=== PATIENT | male | born 1945 | race Caucasian/White ===

== ENCOUNTER → 2016-12-18 | Outpatient (CLI) | payer MEDICARE, OTHER ==
[2016-12-18 10:56] LABS: ALBUMIN 4.2 GM/DL (3.2-5.2); ALBUMIN/GLOBULIN RATIO 1.31 (1.00-1.93); ALKALINE PHOSPHATASE 83 U/L (45-117); ALT/SGPT 39 U/L (12-78); ANION GAP 10 MEQ/L (8-16); AST/SGOT 31 U/L (15-37); BILIRUBIN,TOTAL 0.6 MG/DL (0.2-1.0); BLOOD UREA NITROGEN 21 MG/DL (7-18); CALCIUM LEVEL 8.9 MG/DL (8.8-10.2); CARBON DIOXIDE LEVEL 29 MEQ/L (21-32); CHLORIDE LEVEL 102 MEQ/L (98-107); CHOLESTEROL LEVEL 220 MG/DL (<200); CREATININE FOR GFR 1.19 MG/DL (0.70-1.30); GLOMERULAR FILTRATION RATE > 60.0 (>42); GLUCOSE, FASTING 100 MG/DL (83-110); POTASSIUM SERUM 4.5 MEQ/L (3.5-5.1); SODIUM LEVEL 141 MEQ/L (136-145); TOTAL PROTEIN 7.4 GM/DL (6.4-8.2); TRIGLYCERIDES LEVEL 227 MG/DL (<150)
[2016-12-20 00:09] LABS: PSA % FREE 19.7 % (.); PSA FREE 1.14 ng/mL; PSA TOTAL 5.8 ng/mL (0.0-4.0)
== END ==
LOC: M LAB 09:47
PROVIDERS: ATTEND Emergency Medicine
DX: N40.1 Benign prostatic hyperplasia with lower urinary tract symptoms (principal); E78.2 Mixed hyperlipidemia

== ENCOUNTER 2017-08-28 08:56 | Emergency (ER) | payer MEDICARE, OTHER ==
[~2017-08-28] VITALS: Ht 188 cm; Wt 102.3 kg
[2017-08-28] MEDS ORDERED: PANT40TA2 (09:14)
[2017-08-28] MEDS ORDERED: NS 500 ML IV ONE (09:45)
[2017-08-28 11:45] LABS: BASO % 0.5 % (0.0-1.0); EOS # 0.2 10^3/uL (0.0-0.50); EOS % 2.7 % (0.0-3.0); IMMATURE GRANULOCYTE % 0.4 % (0-0); LYMPH # 1.2 10^3/uL (1.5-4.5); LYMPH % 20.9 % (24.0-44.0); MEAN CORPUSCULAR HEMOGLOBIN 29.8 pg (27.0-33.0); MEAN CORPUSCULAR HGB CONC 33.6 g/dl (32.0-36.5); MEAN CORPUSCULAR VOLUME 88.8 fl (80.0-96.0); MONO # 0.4 10^3/uL (0.0-0.8); MONO % 7.6 % (0.0-5.0); NEUTROPHILS # 3.8 10^3/uL (1.8-7.7); NEUTROPHILS % 67.9 % (36.0-66.0); PLATELET COUNT, AUTOMATED 291 10^3/uL (150-450); RED CELL DISTRIBUTION WIDTH 13.2 % (11.5-14.5); WHITE BLOOD COUNT 5.6 10^3/uL (4.0-10.0)
[2017-08-28 11:57] LABS: ALBUMIN 3.8 GM/DL (3.2-5.2); ALBUMIN/GLOBULIN RATIO 1.06 (1.00-1.93); ALKALINE PHOSPHATASE 90 U/L (45-117); ALT/SGPT 45 U/L (12-78); ANION GAP 6 MEQ/L (8-16); AST/SGOT 36 U/L (7-37); BILIRUBIN,DIRECT 0.1 MG/DL (0.0-0.2); BILIRUBIN,TOTAL 0.6 MG/DL (0.2-1.0); BLOOD UREA NITROGEN 20 MG/DL (7-18); CALCIUM LEVEL 8.9 MG/DL (8.8-10.2); CARBON DIOXIDE LEVEL 29 MEQ/L (21-32); CHLORIDE LEVEL 105 MEQ/L (98-107); GLOMERULAR FILTRATION RATE > 60.0 (>42); GLUCOSE, FASTING 97 MG/DL (83-110); POTASSIUM SERUM 4.2 MEQ/L (3.5-5.1); SODIUM LEVEL 140 MEQ/L (136-145); TOTAL PROTEIN 7.4 GM/DL (6.4-8.2)
[2017-08-28 12:54] LABS: MAGNESIUM LEVEL 2.2 MG/DL (1.8-2.4)
[2017-08-28 13:49] LABS: FREE T4 1.11 NG/DL (0.76-1.46)
--- NOTE | 2017-08-28 13:55 | ECGEPIP ---
Stationary ECG Study [facility] - ED Test Date: 2017-08-28 Pat Name: MAC COYLE Department: Room: - Gender: M Optical Laboratory Technician: kristine : 1945 Requested By: Enriqueta Dunn Order Number: [id number] Reading MD: Joe Irizarry Measurements Intervals [place] Rate: 68 P: 46 TN: 213 QRS: 57 QRSD: 94 T: 9 QT: 379 QTc: 406 Interpretive Statements SINUS RHYTHM WITH FIRST DEGREE AV BLOCK NSTTW ABNORMALITIES SIMILAR TO 11/04/13 Electronically Signed On 08-28-2017 13:55:48 EST by Joe Irizarry
[2017-08-28 15:01] VITALS: BP 161/77
== END 2017-08-28 15:15 | disposition home or self-care (01) ==
LOC: M ED 08:56
DX: I49.8 Other specified cardiac arrhythmias (principal); E02 Subclinical iodine-deficiency hypothyroidism; R94.31 Abnormal electrocardiogram [ECG] [EKG]; I44.0 Atrioventricular block, first degree; I25.10 Atherosclerotic heart disease of native coronary artery without angina pectoris; K22.70 Barrett's esophagus without dysplasia; Z79.899 Other long term (current) drug therapy

== ENCOUNTER → 2017-12-01 | Outpatient (REF) | payer MEDICARE, OTHER ==
[2017-12-01 11:15] LABS: ALBUMIN 4.2 GM/DL (3.2-5.2); ALBUMIN/GLOBULIN RATIO 1.31 (1.00-1.93); ALKALINE PHOSPHATASE 78 U/L (45-117); ALT/SGPT 53 U/L (12-78); ANION GAP 6 MEQ/L (8-16); AST/SGOT 37 U/L (7-37); BILIRUBIN,TOTAL 0.6 MG/DL (0.2-1.0); BLOOD UREA NITROGEN 21 MG/DL (7-18); CALCIUM LEVEL 8.8 MG/DL (8.8-10.2); CARBON DIOXIDE LEVEL 31 MEQ/L (21-32); CHLORIDE LEVEL 105 MEQ/L (98-107); CHOLESTEROL LEVEL 145 MG/DL (<200); CHOLESTEROL RISK RATIO 3.295 (<5); CREATININE FOR GFR 1.07 MG/DL (0.70-1.30); FREE T4 0.96 NG/DL (0.76-1.46); GLOMERULAR FILTRATION RATE > 60.0 (>42); GLUCOSE, FASTING 88 MG/DL (70-100); HDL CHOLESTEROL 44 MG/DL (>40); LDL CHOLESTEROL 64.2 MG/DL (<100); MAGNESIUM LEVEL 2.3 MG/DL (1.8-2.4); NON-HDL-C 101 MG/DL; POTASSIUM SERUM 4.6 MEQ/L (3.5-5.1); SODIUM LEVEL 142 MEQ/L (136-145); TOTAL PROTEIN 7.4 GM/DL (6.4-8.2); TRIGLYCERIDES LEVEL 184 MG/DL (<150)
[2017-12-03 00:07] LABS: PSA FREE 1.22 ng/mL; PSA TOTAL 6.1 ng/mL (0.0-4.0)
== END ==
LOC: M LAB REF 10:35
DX: E03.9 Hypothyroidism, unspecified (principal)
CPT/HCPCS: 83735

== ENCOUNTER → 2018-06-23 | Outpatient (REF) | payer MEDICARE, OTHER ==
[2018-06-23 14:07] LABS: BASO % 0.7 % (0.0-1.0); EOS # 0.2 10^3/uL (0.0-0.50); EOS % 3.3 % (0.0-3.0); HEMOGLOBIN 15.3 g/dl (13.5-17.5); IMMATURE GRANULOCYTE % 0.3 % (0-3.0); LYMPH # 1.3 10^3/uL (1.5-4.5); LYMPH % 21.8 % (24.0-44.0); MEAN CORPUSCULAR HEMOGLOBIN 29.9 pg (27.0-33.0); MEAN CORPUSCULAR VOLUME 87.9 fl (80.0-96.0); MONO # 0.5 10^3/uL (0.0-0.8); MONO % 8.8 % (0.0-5.0); NEUTROPHILS # 3.9 10^3/uL (1.8-7.7); NEUTROPHILS % 65.1 % (36.0-66.0); PLATELET COUNT, AUTOMATED 283 10^3/uL (150-450); RED BLOOD COUNT 5.12 10^6/uL (4.30-6.10); RED CELL DISTRIBUTION WIDTH 13.2 % (11.5-14.5); WHITE BLOOD COUNT 6.1 10^3/uL (4.0-10.0)
[2018-06-23 14:12] LABS: APPEARANCE, URINE CLEAR (CLEAR); BACTERIA, URINE AUTO NEGATIVE (NEGATIVE); BILIRUBIN, URINE AUTO NEGATIVE (NEGATIVE); BLOOD, URINE BLOOD NEGATIVE (NEGATIVE); COLOR, URINE YELLOW (YELLOW); GLUCOSE, URINE (UA) AUTO NEGATIVE (NEGATIVE); KETONE, URINE AUTO NEGATIVE (NEGATIVE); LEUKOCYTE ESTERASE, URINE AUTO NEGATIVE (NEGATIVE); MUCUS, URINE SMALL (NEGATIVE); NITRITE, URINE AUTO NEGATIVE (NEGATIVE); PROTEIN, URINE AUTO NEGATIVE (NEGATIVE); RBC, URINE AUTO 2 /HPF (0-3); SPECIFIC GRAVITY URINE AUTO 1.021 (1.002-1.035); SQUAMOUS EPITHELIAL CELL UR AU 0 /HPF (0-6); UROBILINOGEN, URINE AUTO 0.2 mg/dL (0.0-2.0); WBC, URINE AUTO 0 /HPF (0-3)
[2018-06-23 15:20] LABS: ANION GAP 4 MEQ/L (8-16); BLOOD UREA NITROGEN 23 MG/DL (7-18); CALCIUM LEVEL 9.1 MG/DL (8.8-10.2); CARBON DIOXIDE LEVEL 31 MEQ/L (21-32); CHLORIDE LEVEL 103 MEQ/L (98-107); CREATININE FOR GFR 1.11 MG/DL (0.70-1.30); GLOMERULAR FILTRATION RATE > 60.0 (>42); GLUCOSE, FASTING 96 MG/DL (70-100); POTASSIUM SERUM 4.6 MEQ/L (3.5-5.1); SODIUM LEVEL 138 MEQ/L (136-145)
[2018-06-23 15:20] LABS: HEPATITIS C VIRUS ABY INDEX 0.2 INDEX (<0.8)
== END ==
LOC: M LABDRAWP 13:18
DX: D41.4 Neoplasm of uncertain behavior of bladder (principal)
CPT/HCPCS: 86803

== ENCOUNTER → 2018-08-04 | Outpatient (REF) | payer MEDICARE, OTHER | LOC: M LAB REF 16:00 | DX: L08.9 Local infection of the skin and subcutaneous tissue, unspecified (principal) | CPT/HCPCS: 87186 ==

== ENCOUNTER → 2018-09-16 | Outpatient (REF) | payer MEDICARE, OTHER ==
[2018-09-17 14:16] LABS: PSA % FREE 18.7 % (.); PSA FREE 1.14 ng/mL; PSA TOTAL 6.1 ng/mL (0.0-4.0)
== END ==
LOC: M LABDRAW1 09:08
DX: D40.0 Neoplasm of uncertain behavior of prostate (principal); Z12.5 Encounter for screening for malignant neoplasm of prostate
CPT/HCPCS: 84154

== ENCOUNTER → 2018-10-23 | Outpatient (REF) | payer MEDICARE, OTHER ==
[~2018-10-23] MED LIST: PANT40TA3
== END ==
LOC: M LABDRAW1 11:53
PROVIDERS: ATTEND Physician Assistant Medical
DX: R97.20 Elevated prostate specific antigen [PSA] (principal)
CPT/HCPCS: 36415; G0103

== ENCOUNTER → 2018-12-18 | Outpatient (CLI) | payer MEDICARE, OTHER ==
[2018-12-18 07:41] LABS: HEMATOCRIT 48.3 % (42.0-52.0); HEMOGLOBIN 16.1 g/dl (13.5-17.5); MEAN CORPUSCULAR HEMOGLOBIN 29.8 pg (27.0-33.0); MEAN CORPUSCULAR HGB CONC 33.3 g/dl (32.0-36.5); MEAN CORPUSCULAR VOLUME 89.3 fl (80.0-96.0); PLATELET COUNT, AUTOMATED 258 10^3/uL (150-450); RED BLOOD COUNT 5.41 10^6/uL (4.30-6.10); WHITE BLOOD COUNT 7.5 10^3/uL (4.0-10.0)
[2018-12-18 08:15] LABS: ALBUMIN 4.1 GM/DL (3.2-5.2); ALT/SGPT 36 U/L (12-78); BILIRUBIN,TOTAL 0.7 MG/DL (0.2-1.0); BLOOD UREA NITROGEN 24 MG/DL (7-18); CALCIUM LEVEL 8.6 MG/DL (8.8-10.2); CARBON DIOXIDE LEVEL 26 MEQ/L (21-32); CHLORIDE LEVEL 106 MEQ/L (98-107); CHOLESTEROL LEVEL 134 MG/DL (<200); CHOLESTEROL RISK RATIO 3.268 (<5); GLOMERULAR FILTRATION RATE > 60.0 (>42); GLUCOSE, FASTING 83 MG/DL (70-100); HDL CHOLESTEROL 41 MG/DL (>40); LDL CHOLESTEROL 69 MG/DL (<100); NON-HDL-C 93 MG/DL; POTASSIUM SERUM 4.4 MEQ/L (3.5-5.1); PROSTATIC SPECIFIC AG MONITOR 6.35 NG/ML (< 4.00); SODIUM LEVEL 139 MEQ/L (136-145); TOTAL PROTEIN 7.4 GM/DL (6.4-8.2); TRIGLYCERIDES LEVEL 120 MG/DL (<150)
--- NOTE | 2018-12-18 08:42 | REP ---
Chest x-ray: Two views. History: Hypothyroidism. Comparison chest x-ray: June 30, 2013. Findings: There are scattered granulomatous calcifications in the lung parenchyma bilaterally unchanged. Calcific mediastinal and left hilar lymph node residuals are suspected also unchanged. No adenopathy is seen. Heart is not enlarged and the lung coyne are otherwise clear. Pleural angles are sharp. The aorta is calcific and slightly tortuous. No bony abnormality is seen. Impression: No active disease. Electronically Signed by Oli Murphy MD 12/18/2018 08:34 A
[2018-12-18 10:07] LABS: TESTOSTERONE 142 NG/DL (241-827)
--- NOTE | 2018-12-19 17:27 | ECGEPIP ---
Stationary ECG Study [facility] Test Date: 2018-12-18 Pat Name: JOSE MARIA COYLE Department: Room: - Gender: M Noc Analyst: SIA : 1945 Requested By: José Luis Pugh Order Number: [id number] Reading MD: Jose Maria Voss Measurements Intervals [place] Rate: 65 P: 67 OR: 215 QRS: 78 QRSD: 102 T: 14 QT: 386 QTc: 403 Interpretive Statements SINUS RHYTHM WITH FIRST DEGREE AV BLOCK Nonspecific ST-T wave abnormalities Similar to tracing done 08-28-17 Electronically Signed On 12-19-2018 17:27:33 EST by Jose Maria Voss
== END ==
LOC: M LAB 06:50
PROVIDERS: ATTEND Family Medicine
DX: R53.83 Other fatigue (principal); E03.9 Hypothyroidism, unspecified; N40.0 Benign prostatic hyperplasia without lower urinary tract symptoms; I51.7 Cardiomegaly

== ENCOUNTER → 2019-01-13 | Outpatient (REF) | payer MEDICARE, OTHER | LOC: M LAB REF 12:18 | PROVIDERS: ATTEND Family Medicine | DX: Z11.6 Encounter for screening for other protozoal diseases and helminthiases (principal) ==

== ENCOUNTER → 2019-02-02 | Outpatient (REF) | payer MEDICARE, OTHER ==
[2019-02-02 19:05] LABS: MONO SCRN NEGATIVE (NEGATIVE)
[2019-02-05 00:08] LABS: Lyme Disease IgG/IgM Antibodie <0.91 ISR (0.00-0.90); Lyme Disease IgM Ab Quantitati <0.80 index (0.00-0.79)
== END ==
LOC: M LABDRAW1 16:28
PROVIDERS: ATTEND Family Medicine
DX: R53.83 Other fatigue (principal)

== ENCOUNTER → 2019-03-09 | Outpatient (CLI) | payer MEDICARE, OTHER ==
[~2019-03-09] MED LIST changes: +AMBI10TA PO; +ATOR1TAB19 PO; +ATOR1TAB21 PO; +CVS1CAP2 PO; +FINA5TAB2 PO; +FLOM0.4C39 PO; +LEVO50TA5 PO; -PANT40TA3; +PANT40TA3 PO; +PARO37.54 PO; +XANA0.5T PO
[2019-03-09 12:10] LABS: HEMATOCRIT 46.4 % (42.0-52.0); HEMOGLOBIN 15.4 g/dl (13.5-17.5); MEAN CORPUSCULAR HEMOGLOBIN 29.8 pg (27.0-33.0); MEAN CORPUSCULAR HGB CONC 33.2 g/dl (32.0-36.5); MEAN CORPUSCULAR VOLUME 89.9 fl (80.0-96.0); PLATELET COUNT, AUTOMATED 279 10^3/uL (150-450); RED BLOOD COUNT 5.16 10^6/uL (4.30-6.10); WHITE BLOOD COUNT 8.1 10^3/uL (4.0-10.0)
[2019-03-09 12:21] LABS: INR 0.99; PROTHROMBIN TIME 13.2 SECONDS (12.1-14.4)
[2019-03-09 12:22] LABS: PARTIAL THROMBOPLASTIN TIME 38.9 SECONDS (25.4-37.6)
[2019-03-09 13:11] LABS: BLOOD UREA NITROGEN 18 MG/DL (7-18); CARBON DIOXIDE LEVEL 27 MEQ/L (21-32); CHLORIDE LEVEL 103 MEQ/L (98-107); CREATININE FOR GFR 0.99 MG/DL (0.70-1.30); GLOMERULAR FILTRATION RATE > 60.0 (>42); GLUCOSE, FASTING 88 MG/DL (70-100); POTASSIUM SERUM 4.4 MEQ/L (3.5-5.1); SODIUM LEVEL 139 MEQ/L (136-145)
--- NOTE | 2019-03-09 14:12 | REP ---
Clinical: Preoperative assessment. Prostate cancer . Comparison: 12/18/2018 . Technique: PA and lateral. Findings: The mediastinum and cardiac silhouette are normal. The lung coyne are clear and without acute consolidation, effusion, or pneumothorax. The skeletal structures are intact and normal. Impression: 1. No acute cardiopulmonary process. Electronically Signed by Nadir Kelly MD 03/09/2019 02:03 P
--- NOTE | 2019-03-10 09:41 | ECGEPIP ---
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 Improved repolarization compared with 12/18/2018. Electronically Signed on 03-10-2019 9:40:28 EDT by Jose Maria Stevenson
== END ==
LOC: M LAB 11:27
PROVIDERS: ATTEND Urology
DX: Z01.818 Encounter for other preprocedural examination (principal); C61 Malignant neoplasm of prostate

== ENCOUNTER → 2019-03-12 | Outpatient (REF) | payer MEDICARE, OTHER | LOC: M SMT 13:27 | PROVIDERS: ATTEND Urology | DX: Z01.818 Encounter for other preprocedural examination (principal); C61 Malignant neoplasm of prostate; N39.0 Urinary tract infection, site not specified ==

== ENCOUNTER 2019-03-25 06:02 | Inpatient (IN) | payer MEDICARE, OTHER ==
[~2019-03-25] VITALS: Ht 188 cm; Wt 93.9 kg
[2019-03-25] VITALS (7 sets, daily range): BP systolic 114–129; BP diastolic 58–61
[~2019-03-25 06:02] MED LIST changes: +HEPARIN SOD (PORCINE) 5000 UNITS/ML VIAL SQ ONE; +LR 1,000 ML IV ONE
[2019-03-25] MEDS ORDERED: BUPIVACAINE HCL 0.25% 30 ML VIAL As Ordered ONE (06:56)
[2019-03-25] MEDS ORDERED: LIDOCAINE 1% SDV INJ 30 ML VIAL As Ordered ONE (06:56)
[2019-03-25] MEDS ORDERED: SCOPOLAMINE 1MG TRANSDERMAL PATCH As Ordered ONE (07:11)
[2019-03-25] MEDS ORDERED: MIDAZOLAM INJ 2 MG/2 ML VIAL (J2250) As Ordered ONE (07:15)
[2019-03-25] MEDS ORDERED: LIDOCAINE 2% INJ 100 MG/5 ML SDV (FOR ANES.) As Ordered ONE (07:15)
[2019-03-25] MEDS ORDERED: ROCURONIUM BROMIDE 50 MG/5 ML VIAL As Ordered ONE ×2 (07:15→08:29)
[2019-03-25] MEDS ORDERED: ONDANSETRON 4MG/2ML VIAL (J2405) As Ordered ONE (07:15)
[2019-03-25] MEDS ORDERED: PROPOFOL 200 MG/20 ML VIAL As Ordered ONE (07:15)
[2019-03-25] MEDS ORDERED: fentaNYL 250 MCG/5 ML INJECTION (J3010) As Ordered ONE (07:15)
[2019-03-25] MEDS ORDERED: dexameTHASONE 4 MG/ML 1ML VIAL (J1100) As Ordered ONE (07:21)
[2019-03-25] MEDS ORDERED: SCOPOLAMINE 1MG TRANSDERMAL PATCH TOP ONE (07:30)
[2019-03-25] MEDS ORDERED: ONDANSETRON 4MG/2ML VIAL (J2405) IV PRN ×2 (07:45→13:30)
[2019-03-25] MEDS ORDERED: ACETAMINOPHEN TAB 650MG DOSE (2X325MG) PO PRN (07:45)
[2019-03-25] MEDS ORDERED: MORPHINE 4 MG/ML 1ML VIAL/SYRINGE (J2270) IV PRN (07:45)
[2019-03-25] MEDS ORDERED: SUCCINYLCHOLINE 100 MG/5 ML SYRINGE (J0330) As Ordered ONE (07:47)
[2019-03-25] MEDS ORDERED: HYDROmorphone HCL 2 MG/ML 1ML VIAL (J1170) As Ordered ONE (08:42)
[2019-03-25] MEDS ORDERED: PARoxetine 12.5 MG **CR** TAB PO SCH (09:00)
[2019-03-25] MEDS ORDERED: ACETAMINOPHEN 1000MG 100ML IV BTL (OFIRMEV) (J0131 PER 10MG) As Ordered ONE (09:56)
[2019-03-25] MEDS ORDERED: ePHEDrine SULFATE 25 MG/5 ML(5MG/ML) SYRINGE As Ordered ONE (10:39)
[2019-03-25] MEDS ORDERED: SUGAMMADEX SODIUM 500 MG/5 ML VIAL (BRIDION) As Ordered ONE (11:47)
--- NOTE | 2019-03-25 12:46 | ROOPDOC ---
[facility] Report Of Operation Report of Operation DATE OF PROCEDURE: 03/25/19 PREPROCEDURE DIAGNOSES: Prostate Cancer. POSTPROCEDURE DIAGNOSES: Prostate Cancer. PROCEDURE: Robotic-assisted Laparoscopic Radical Prostatectomy with Bilateral Pelvic Lymph Node Dissection. SURGEON: Mitchel Bess MD CUSTOMER CARE CONSULTANT: Paige Frank NP ANESTHESIA: General. OPERATIVE INDICATIONS: This is a 73 year old male with clinical T1c [place] 3+5 prostate cancer, here today for treatment. DESCRIPTION OF PROCEDURE: The patient was brought to the operating room and general anesthesia was induced. Prophylactic antibiotics were infused. He was then placed in the supine position and prepped and draped in the usual sterile fashion. At this point, a Belcher catheter was inserted into the bladder and the balloon was filled with 10 mL of sterile water. We then made a midline incision just above the umbilicus for an 8 mm port. A Veress needle was utilized to achieve pneumoperitoneum. Next, an 8 mm port was inserted into the incision and subsequently a camera was inserted. There were no injuries from the Veress needle or initial trocar placement. Then three robotic ports were placed in the usual configuration in line just below the level of the umbilicus. Once all the ports were placed, the robot was docked. Additional lysis of adhesions between the sigmoid colon and abdominal wall was then performed. The bladder was then released from the anterior abdominal wall using electrocautery. Once the bladder was dropped, the fat overlying the prostate was cleared using electrocautery. The superficial dorsal vein was controlled with electrocautery. The endopelvic fascia was opened on both sides and the dorsal venous complex was cleared. Next, a #0 Vicryl fi [id number] stitch was placed around the dorsal venous complex. Once that was done, the bladder was opened and dissected away from the prostate. Of note, this was challenging as the patient had a very large median lobe growing into the bladder. This was dissected away from the bladder. At this point, the prostate was lifted up. The vasa deferentia were identified in the midline. They were controlled with electrocautery and then transected. The seminal vesicles were also dissected off bilaterally. The rectum was safely mobilized away from the prostate. At this point I ligated and transected bilateral prostatic pedicles using the Harmonic scalpel. The pedicles were carried towards the apex. After taking care of the pedicles and mobilizing the rectum off the prostate below, the prostate was only connected by the urethra. At this point, the dorsal venous complex was transected with electrocautery. The urethra was then opened and the catheter was withdrawn and the posterior urethra was transected, thus freeing the prostate. At this point, we checked for hemostasis and it appeared very good. Next, we performed bilateral pelvic lymph node dissection. This was done in a standard fashion. The limits of dissection were the iliac vein proximally, the obturator nerve distally, the pelvic sidewall laterally, and the bladder medially. All lymphatic tissue within these limits was removed. I performed the same procedure on both the right and left sides. Hemostasis was then obtained with a combination of bipolar electrocautery and Weck clips. The lymphatic packets were then placed in separate Endo Catch bags for future retrieval. Once hemostasis was confirmed, I then moved on to perform the vesicourethral anastomosis. The vesicourethral anastomosis was performed in running fashion using a Quill stitch. Once this was done, the final #20-Tajik Belcher catheter was placed. The balloon was filled with 15 mL of sterile water. Upon completion of the vesicourethral anastomosis, it was tested by filling the bladder with sterile water. The anastomosis appeared to be watertight. At this point, the prostate and seminal vesicles were placed in an Endo Catch bag for future retrieval. A Duane-Luevano drain was brought in through the left robotic port skin site and the drain was positioned anterior to the bladder. The robot was then undocked. A Arnaud-Elsa fascial closure device was utilized to place a #0 Vicryl suture through the fascia of the 12 mm assistant inventory manager port. The drain was secured to the skin with #2-0 Ethilon suture. The prostate, as well as the lymphatic packets were then extracted from the camera port site after the skin was extend ed. The fascia in this incision was then closed with a running #0 Vicryl stitch. Next, all the remaining ports were removed and there did not appear to be any bleeding from any of the port sites. The previously placed #0 Vicryl free ties through the assistant inventory manager port were then tied down and all incisions were irrigated. Last, all of the incisions were closed with running subcuticular #4-0 Monocryl sutures. Local anesthesia was applied. Dermabond was then applied to the incisions. This marked the conclusion of the procedure. The patient was then awakened from anesthesia and transported to the recovery room in stable condition. ESTIMATED BLOOD LOSS: 150 mL. COMPLICATIONS: None. SPECIMENS: Prostate and seminal vesicles, right pelvic lymph nodes, left pelvic lymph nodes. PLAN: The patient will be admitted to the hospital postoperatively, and he will likely be discharged home within the next 1-2 days. MITCHEL BESS MD Mar 25, 2019 12:46
[2019-03-25] MEDS ORDERED: METOCLOPRAMIDE INJ 10MG/2ML VIAL (J2765) IV PRN (13:30)
[2019-03-25] MEDS ORDERED: HYDROMORPHONE HCL 0.5 MG/ 0.5 ML SYRINGE (J1170 PER 1) IV PRN (13:30)
[2019-03-25] MEDS ORDERED: LR 1,000 ML IV SCH (13:30)
[2019-03-25] MEDS ORDERED: PERCOCET 5MG/325MG TAB PO PRN (13:30)
[2019-03-25 13:38] LABS: HEMATOCRIT 44.4 % (42.0-52.0); HEMOGLOBIN 14.7 g/dl (13.5-17.5); MEAN CORPUSCULAR HEMOGLOBIN 29.8 pg (27.0-33.0); MEAN CORPUSCULAR HGB CONC 33.1 g/dl (32.0-36.5); MEAN CORPUSCULAR VOLUME 90.1 fl (80.0-96.0); PLATELET COUNT, AUTOMATED 333 10^3/uL (150-450); RED BLOOD COUNT 4.93 10^6/uL (4.30-6.10); WHITE BLOOD COUNT 17.5 10^3/uL (4.0-10.0)
[2019-03-25 13:49] LABS: CALCIUM LEVEL 8.6 MG/DL (8.8-10.2); CREATININE FOR GFR 1.64 MG/DL (0.70-1.30); GLOMERULAR FILTRATION RATE 44.2 (>42); POTASSIUM SERUM 4.1 MEQ/L (3.5-5.1)
[2019-03-25] MEDS: fentaNYL 100 MCG/2 ML INJECTION (J3010) IV PRN ×3 (14:11→14:14)
[2019-03-25] MEDS: NS 1,000 ML IV SCH ×2 (15:18→23:55)
[2019-03-25] MEDS: ceFAZolin SOD 1 GM in D5W MINI-BAG PLUS 50 ML IV SCH ×2 (15:18→23:01)
[2019-03-25] MEDS: DOCUSATE SODIUM 100 MG CAP PO SCH ×2 (15:19→20:03)
[2019-03-25] MEDS: PERCOCET 5MG/325MG TAB PO PRN ×2 (15:19→19:56)
[2019-03-25] MEDS: HEPARIN SOD (PORCINE) 5000 UNITS/ML VIAL SC SCH ×2 (15:20→22:52)
[2019-03-25] MEDS ORDERED: DESFLURANE 240 ML INHALANT As Ordered ONE (17:21)
[2019-03-25] MEDS: PARoxetine 12.5 MG **CR** TAB PO SCH (20:02)
[2019-03-25] MEDS: PANTOPRAZOLE 40MG TAB (PROTONIX) PO SCH (20:03)
[2019-03-26 02:00] VITALS: BP 112/57
[2019-03-26] MEDS: HEPARIN SOD (PORCINE) 5000 UNITS/ML VIAL SC SCH ×3 (05:52→21:39)
[2019-03-26] MEDS: LEVOTHYROXINE 50MCG TABLET (0.05MG) PO SCH (05:52)
[2019-03-26] MEDS: PERCOCET 5MG/325MG TAB PO PRN ×4 (05:53→21:44)
[2019-03-26 06:00] VITALS: BP 114/58
[2019-03-26] MEDS: NS 1,000 ML IV SCH (06:27)
[2019-03-26 06:41] LABS: HEMATOCRIT 39.5 % (42.0-52.0); HEMOGLOBIN 12.9 g/dl (13.5-17.5); MEAN CORPUSCULAR HEMOGLOBIN 29.5 pg (27.0-33.0); MEAN CORPUSCULAR HGB CONC 32.7 g/dl (32.0-36.5); MEAN CORPUSCULAR VOLUME 90.2 fl (80.0-96.0); PLATELET COUNT, AUTOMATED 314 10^3/uL (150-450); RED BLOOD COUNT 4.38 10^6/uL (4.30-6.10); WHITE BLOOD COUNT 11.2 10^3/uL (4.0-10.0)
[2019-03-26 07:04] LABS: BLOOD UREA NITROGEN 17 MG/DL (7-18); CALCIUM LEVEL 8.4 MG/DL (8.8-10.2); CARBON DIOXIDE LEVEL 28 MEQ/L (21-32); CHLORIDE LEVEL 105 MEQ/L (98-107); CREATININE FOR GFR 1.11 MG/DL (0.70-1.30); GLOMERULAR FILTRATION RATE > 60.0 (>42); GLUCOSE, FASTING 91 MG/DL (70-100); POTASSIUM SERUM 4.1 MEQ/L (3.5-5.1); SODIUM LEVEL 140 MEQ/L (136-145)
--- NOTE | 2019-03-26 07:40 | IPNPDOC ---
Subjective Review oF Systems Chief Complaint The patient is a 73-year-old male admitted with a reason for visit of Prostate Cancer. Events since Last Encounter No acute events o/n. Good pain control. Tolerating regular diet. No n/v. Ambulating well. No f/c/ns. Objective Physical Examination General Exam: Alert, Cooperative, No Acute Distress ABDOMEN EXAM: Soft, Tenderness (mild), Other (incisions clean/dry/intact; MAUDE w/ serosanguinous output) Skin Exam: Nl turgor and temperature Neuro Exam: Normal Speech Psych Exam: Mental status NL, Mood NL Other physical findings catheter in place draining clear urine Vital Signs/I&O Vital Signs Date Time Temp Pulse Resp B/P (MAP) Pulse Ox O2 Delivery O2 Flow Rate FiO2 03/26/19 06:23 16 03/26/19 06:00 97.6 63 114/58 (76) 98 03/25/19 14:35 2 I&O- Last 24 Hours up to 6 AM 03/26/19 06:00 Intake Total 2660 ml Output Total 1430 ml Balance 1230 ml Laboratory Data Labs 24H Laboratory Tests 2 03/25/19 13:07: Nucleated Red Blood Cells % (auto) 0.0, Anion Gap 9, Glomerular Filtration Rate 44.2, Blood Urea Nitrogen 20H, Creatinine 1.64H, Sodium Level 138, Potassium Level 4.1, Chloride Level 105, Carbon Dioxide Level 24, Calcium Level 8.6L 03/26/19 05:57: Nucleated Red Blood Cells % (auto) 0.0, Anion Gap 7L, Glomerular Filtration Rate > 60.0, Blood Urea Nitrogen 17, Creatinine 1.11, Sodium Level 140, Potassium Level 4.1, Chloride Level 105, Carbon Dioxide Level 28, Calcium Level 8.4L CBC/BMP Laboratory Tests 03/25/19 13:07 Red Blood Count 4.93, Mean Corpuscular Volume 90.1, Mean Corpuscular Hemoglobin 29.8, Mean Corpuscular Hemoglobin Concent 33.1, Red Cell Distribution Width 13.3, Calcium Level 8.6 L 03/26/19 05:57 Red Blood Count 4.38, Mean Corpuscular Volume 90.2, Mean Corpuscular Hemoglobin 29.5, Mean Corpuscular Hemoglobin Concent 32.7, Red Cell Distribution Width 13.5, Calcium Level 8.4 L Assessment/Plan Date Seen The patient was seen on 03/26/19. Patient Summary This is a 73 y/o M POD1 s/p RALP w/ BPLND. He is doing well. Labs are w/i nl limits. Good UOP. Acceptable MAUDE output. Plan/VTE VTE Prophylaxis Ordered?: Yes VTE Exclusion Mechanical Proph: N/A:VTE Prophy Ordered VTE Exclusion Pharmacological: N/A:VTE Prophy Ordered Plan/Urinary Catheter Urinary Catheter: Other Catheter: (catheter to stay in for 7-10 days for healing of the vesicourethral anastomosis) Plan - percocet prn pain - d/c IVF - cont home meds - strict I/Os - SCDs when in bed - ambulate - SQH - incentive spirometry - regular diet - likely discharge home later today w/ catheter in place (will remove MAUDE drain prior to discharge) MITCHEL BESS MD Mar 26, 2019 07:40
[2019-03-26] MEDS: DOCUSATE SODIUM 100 MG CAP PO SCH ×2 (08:18→21:39)
[2019-03-26] MEDS: ATORVASTATIN 20 MG TAB PO SCH (08:18)
[2019-03-26] MEDS: PANTOPRAZOLE 40MG TAB (PROTONIX) PO SCH ×2 (08:19→21:39)
[2019-03-26 15:20] VITALS: BP 114/56
[2019-03-26] MEDS: CIPROFLOXACIN 500 MG TAB PO SCH (18:22)
[2019-03-26] MEDS: PARoxetine 12.5 MG **CR** TAB PO SCH (21:39)
[2019-03-26 22:00] VITALS: BP 129/65
[2019-03-27] MEDS: PERCOCET 5MG/325MG TAB PO PRN ×3 (02:26→10:40)
[2019-03-27] MEDS: LEVOTHYROXINE 50MCG TABLET (0.05MG) PO SCH (05:31)
[2019-03-27] MEDS: HEPARIN SOD (PORCINE) 5000 UNITS/ML VIAL SC SCH (05:31)
[2019-03-27 05:56] LABS: HEMATOCRIT 39.2 % (42.0-52.0); HEMOGLOBIN 12.5 g/dl (13.5-17.5); MEAN CORPUSCULAR HEMOGLOBIN 29.1 pg (27.0-33.0); MEAN CORPUSCULAR HGB CONC 31.9 g/dl (32.0-36.5); MEAN CORPUSCULAR VOLUME 91.2 fl (80.0-96.0); PLATELET COUNT, AUTOMATED 282 10^3/uL (150-450); WHITE BLOOD COUNT 8.6 10^3/uL (4.0-10.0)
[2019-03-27 06:00] VITALS: BP 128/66
[2019-03-27 06:25] LABS: BLOOD UREA NITROGEN 14 MG/DL (7-18); CALCIUM LEVEL 8.4 MG/DL (8.8-10.2); CARBON DIOXIDE LEVEL 33 MEQ/L (21-32); CHLORIDE LEVEL 104 MEQ/L (98-107); CREATININE FOR GFR 1.14 MG/DL (0.70-1.30); GLOMERULAR FILTRATION RATE > 60.0 (>42); GLUCOSE, FASTING 86 MG/DL (70-100); POTASSIUM SERUM 4.2 MEQ/L (3.5-5.1); SODIUM LEVEL 140 MEQ/L (136-145)
[2019-03-27] MEDS: CIPROFLOXACIN 500 MG TAB PO SCH (09:24)
[2019-03-27] MEDS: PANTOPRAZOLE 40MG TAB (PROTONIX) PO SCH (09:24)
[2019-03-27] MEDS: ATORVASTATIN 20 MG TAB PO SCH (09:24)
[2019-03-27] MEDS: DOCUSATE SODIUM 100 MG CAP PO SCH (09:24)
[2019-03-27 10:16] VITALS: BP 122/66
--- NOTE | 2019-03-29 14:32 | DSES ---
DATE OF ADMISSION: 03/25/2019 DATE OF DISCHARGE: 03/27/2019 ADMISSION DIAGNOSIS: Prostate cancer. DISCHARGE DIAGNOSIS: Prostate cancer. ADMITTING PHYSICIAN: Dallas Vides MD DISCHARGING PHYSICIAN: Jose Maria Montero MD PROCEDURE PERFORMED: Robotic assisted laparoscopic radical prostatectomy with bilateral pelvic lymph node dissection on March 25, 2019. HISTORY OF PRESENT ILLNESS: This is a 73-year-old male with prostate cancer who underwent the above listed procedure for treatment. He was admitted to the hospital postoperatively. HOSPITALIZATION COURSE: The patient's postoperative course was unremarkable. Postoperative day 1 he was ambulating well and had relatively good pain control. All of his labs were within normal limits. By postoperative day 2, his pain was much better controlled with oral pain medications. He was tolerating a regular diet. He had excellent urine output. His Duane-Luevano drain had minimal output. His Duane-Luevano drain was therefore removed. He was deemed ready for discharge home on postoperative day 2. He was discharged home with his catheter in place with a plan to follow-up in the clinic in approximately one week for catheter removal and to discuss pathology results.
== END 2019-03-27 13:45 | disposition home or self-care (01) | DRG 708 ==
LOC: M OR 06:02 → M MS5PR 14:56
PROVIDERS: ADMIT Urology; ATTEND Urology
PROC: 07BC4ZZ Excision of Pelvis Lymphatic, Percutaneous Endoscopic Approach (ICD-10-PCS; 2019-03-25)
PROC: 0VT04ZZ Resection of Prostate, Percutaneous Endoscopic Approach (ICD-10-PCS; principal; 2019-03-25 07:30)
DX: C61 Malignant neoplasm of prostate (principal)

== ENCOUNTER → 2019-04-29 | Outpatient (CLI) | payer MEDICARE, OTHER ==
[~2019-04-29] MED LIST changes: -HEPARIN SOD (PORCINE) 5000 UNITS/ML VIAL SQ ONE; -LR 1,000 ML IV ONE
== END ==
LOC: M SMT 09:15
PROVIDERS: ATTEND Urology
DX: C61 Malignant neoplasm of prostate (principal)

== ENCOUNTER → 2019-07-13 | Outpatient (CLI) | payer OTHER | LOC: M SMT 13:24 | PROVIDERS: ATTEND Urology | DX: C61 Malignant neoplasm of prostate (principal) ==

== ENCOUNTER → 2019-09-14 | Outpatient (CLI) | payer MEDICARE, OTHER ==
[2019-09-14 08:52] LABS: HEMATOCRIT 48.2 % (42.0-52.0); HEMOGLOBIN 14.9 g/dl (13.5-17.5); MEAN CORPUSCULAR HEMOGLOBIN 28.2 pg (27.0-33.0); MEAN CORPUSCULAR HGB CONC 30.9 g/dl (32.0-36.5); MEAN CORPUSCULAR VOLUME 91.3 fl (80.0-96.0); PLATELET COUNT, AUTOMATED 334 10^3/uL (150-450); RED BLOOD COUNT 5.28 10^6/uL (4.30-6.10); WHITE BLOOD COUNT 9.8 10^3/uL (4.0-10.0)
--- NOTE | 2019-09-14 09:20 | REP ---
Clinical: Left lower quadrant mass. Technique: Axial noncontrast images from the lung bases to the pubic symphysis with coronal and sagittal re-formations. Comparison: 01/13/2017. Findings: The patient is noted to be status post prostatectomy. The pelvis demonstrates bilateral pelvic sidewall adenopathy with lymph node along the right pelvic sidewall adjacent to the iliac vein measuring 2.2 x 3.2 cm. Similar sized lymph node along the left pelvic sidewall demonstrates a moderate amount of surrounding inflammatory stranding extending along the left pelvic sidewall with smaller mildly prominent lymph nodes (images 105 - 129). Findings are concerning for metastatic disease and represent new findings as compared to 01/13/2017. Liver, spleen, pancreas, gallbladder, bilateral adrenal glands and kidneys are essentially normal for noncontrast evaluation. Subtle low density lesion in the left kidney remains relatively stable and consistent with cyst. The enteric system is without obstruction or acute inflammatory process. Further evaluation of the pelvis demonstrates a small fat containing inguinal hernias with collapsed normal bladder. No ascites. No significant retroperitoneal adenopathy. No free air. Atherosclerotic changes of the aorta and vasculature without aneurysm. The osseous structures demonstrate degenerative changes without obvious focal abnormality. The lung bases are clear. Impression: Bilateral pelvic sidewall adenopathy with left-sided lymph node demonstrating surrounding inflammatory stranding and smaller adjacent mildly prominent lymph nodes and findings are most compatible with metastatic disease. Electronically Signed by Nadir Kelly MD 09/14/2019 09:12 A
[2019-09-14 09:27] LABS: ALBUMIN 3.1 GM/DL (3.2-5.2); ALT/SGPT 39 U/L (12-78); BILIRUBIN,TOTAL 0.5 MG/DL (0.2-1.0); BLOOD UREA NITROGEN 19 MG/DL (7-18); CALCIUM LEVEL 9.2 MG/DL (8.8-10.2); CARBON DIOXIDE LEVEL 32 MEQ/L (21-32); CHLORIDE LEVEL 103 MEQ/L (98-107); CREATININE FOR GFR 1.24 MG/DL (0.70-1.30); GLOMERULAR FILTRATION RATE > 60.0 (>42); GLUCOSE, FASTING 97 MG/DL (70-100); POTASSIUM SERUM 4.8 MEQ/L (3.5-5.1); SODIUM LEVEL 139 MEQ/L (136-145); TOTAL PROTEIN 7.4 GM/DL (6.4-8.2)
[2019-09-14 10:07] LABS: ERYTHROCYTE SEDIMENTATION RATE 65 mm/hr (0-20)
== END ==
LOC: M RAD 08:09
PROVIDERS: ATTEND Family Medicine
DX: R59.9 Enlarged lymph nodes, unspecified (principal); R10.32 Left lower quadrant pain; R19.04 Left lower quadrant abdominal swelling, mass and lump; D64.9 Anemia, unspecified

== ENCOUNTER → 2019-10-15 | Outpatient (REF) | payer MEDICARE, OTHER | LOC: M LABDRAW1 15:13 | PROVIDERS: ATTEND Urology | DX: C61 Malignant neoplasm of prostate (principal) ==

== ENCOUNTER → 2019-11-08 | Outpatient (REF) | payer MEDICARE, OTHER | LOC: M SMT 14:00 | PROVIDERS: ATTEND Urology | DX: C67.9 Malignant neoplasm of bladder, unspecified (principal) ==

== ENCOUNTER 2019-11-27 11:38 | Emergency (ER) | payer MEDICARE, OTHER ==
[~2019-11-27] VITALS: Ht 188 cm; Wt 107.9 kg
[2019-11-27] MEDS ORDERED: TETRACAINE 0.5% OPHTH SOLN 4ML OU ONE (12:15)
[2019-11-27] MEDS ORDERED: FLUORESCEIN OPHTH 1 MG STRIP OU ONE (12:15)
[2019-11-27] MEDS ORDERED: ERYTHROMYCIN OPHTH OINT OD ONE (13:00)
[2019-11-27] MEDS ORDERED: ERYT1OIN26 OD (13:05)
[2019-11-27 13:16] VITALS: BP 168/79
== END 2019-11-27 13:17 | disposition home or self-care (01) ==
LOC: M ED 11:38
DX: S05.01XA Injury of conjunctiva and corneal abrasion without foreign body, right eye, initial encounter (principal); W22.09XA Striking against other stationary object, initial encounter; Y92.019 Unspecified place in single-family (private) house as the place of occurrence of the external cause; E03.9 Hypothyroidism, unspecified; Z85.46 Personal history of malignant neoplasm of prostate; Z79.899 Other long term (current) drug therapy

== ENCOUNTER → 2020-02-02 | Outpatient (CLI) | payer MEDICARE, OTHER ==
[~2020-02-02] MED LIST changes: +ERYT1OIN26 OD
== END ==
LOC: M LAB 09:00
PROVIDERS: ATTEND Urology
DX: C61 Malignant neoplasm of prostate (principal)

== ENCOUNTER → 2020-05-09 | Outpatient (REF) | payer MEDICARE, OTHER ==
[~2020-05-09] MED LIST changes: -ERYT1OIN26 OD; +ERYT5OIN25 OD; +PANT40TA29 PO; -PANT40TA3 PO
== END ==
LOC: M LABDRWAD 15:43
PROVIDERS: ATTEND Urology
DX: C61 Malignant neoplasm of prostate (principal)

== ENCOUNTER → 2020-05-15 | Outpatient (REF) | payer MEDICARE, OTHER | LOC: M SMT 06:50 | PROVIDERS: ATTEND Urology | DX: C67.9 Malignant neoplasm of bladder, unspecified (principal) ==

== ENCOUNTER → 2020-06-13 | Outpatient (CLI) | payer MEDICARE, OTHER | LOC: M LAB 15:00 | PROVIDERS: ATTEND Urology | DX: C61 Malignant neoplasm of prostate (principal) ==

== ENCOUNTER → 2020-11-25 | Outpatient (CLI) | payer MEDICARE, OTHER | LOC: M LAB 09:21 | PROVIDERS: ATTEND Urology | DX: Z85.46 Personal history of malignant neoplasm of prostate (principal) ==

== ENCOUNTER → 2020-12-04 | Outpatient (REF) | payer MEDICARE, OTHER | LOC: M SMT 13:09 | PROVIDERS: ATTEND Urology | DX: C67.9 Malignant neoplasm of bladder, unspecified (principal) ==

== ENCOUNTER → 2021-05-28 | Outpatient (CLI) | payer MEDICARE, OTHER ==
[2021-05-28 09:23] LABS: HEMATOCRIT 46.7 % (42.0-52.0); HEMOGLOBIN 15.3 g/dl (13.5-17.5); MEAN CORPUSCULAR HEMOGLOBIN 29.1 pg (27.0-33.0); MEAN CORPUSCULAR HGB CONC 32.8 g/dl (32.0-36.5); PLATELET COUNT, AUTOMATED 276 10^3/uL (150-450); RED BLOOD COUNT 5.25 10^6/uL (4.30-6.10); WHITE BLOOD COUNT 5.5 10^3/uL (4.0-10.0)
[2021-05-28 09:57] LABS: ALBUMIN 4.1 GM/DL (3.2-5.2); ALT/SGPT 33 U/L (12-78); BILIRUBIN,TOTAL 0.7 MG/DL (0.2-1.0); BLOOD UREA NITROGEN 19 MG/DL (7-18); CALCIUM LEVEL 8.5 MG/DL (8.8-10.2); CARBON DIOXIDE LEVEL 29 MEQ/L (21-32); CHLORIDE LEVEL 107 MEQ/L (98-107); CHOLESTEROL LEVEL 125 MG/DL (<200); CHOLESTEROL RISK RATIO 3.205 (<5); CREATININE FOR GFR 1.11 MG/DL (0.70-1.30); GLOMERULAR FILTRATION RATE > 60.0 (>42); GLUCOSE, FASTING 97 MG/DL (70-100); HDL CHOLESTEROL 39 MG/DL (>40); LDL CHOLESTEROL 64 MG/DL (<100); NON-HDL-C 86 MG/DL; POTASSIUM SERUM 4.5 MEQ/L (3.5-5.1); PROSTATIC SPECIFIC AG MONITOR < 0.01 NG/ML (< 4.00); SODIUM LEVEL 140 MEQ/L (136-145); TOTAL PROTEIN 7.2 GM/DL (6.4-8.2); TRIGLYCERIDES LEVEL 110 MG/DL (<150)
[2021-05-28 10:41] LABS: TESTOSTERONE 263 NG/DL (241-827)
== END ==
LOC: M LAB 08:41
PROVIDERS: ATTEND Family Medicine
DX: R53.83 Other fatigue (principal); I10 Essential (primary) hypertension; E03.9 Hypothyroidism, unspecified; Z79.899 Other long term (current) drug therapy; R97.20 Elevated prostate specific antigen [PSA]; C61 Malignant neoplasm of prostate

== ENCOUNTER → 2021-05-28 | Outpatient (CLI) | payer MEDICARE, OTHER | LOC: M LAB 08:38 | PROVIDERS: ATTEND Urology | DX: C61 Malignant neoplasm of prostate (principal) ==

== ENCOUNTER → 2021-06-04 | Outpatient (REF) | payer MEDICARE, OTHER ==
[~2021-06-04] MED LIST changes: -PARO37.54 PO; +PARO37.55 PO
== END ==
LOC: M SMT 13:06
PROVIDERS: ATTEND Urology
DX: C67.9 Malignant neoplasm of bladder, unspecified (principal); M19.90 Unspecified osteoarthritis, unspecified site

== ENCOUNTER → 2021-06-04 | Outpatient (CLI) | payer MEDICARE, OTHER ==
[2021-06-05 14:14] LABS: Lyme Disease IgG/IgM Antibodie <0.91 ISR (0.00-0.90); Lyme Disease IgM Ab Quantitati <0.80 index (0.00-0.79)
== END ==
LOC: M LAB 12:13
PROVIDERS: ATTEND Family Medicine
DX: M19.90 Unspecified osteoarthritis, unspecified site (principal)

== ENCOUNTER → 2021-12-25 | Outpatient (CLI) | payer MEDICARE ==
[2021-12-25 10:07] LABS: HEMATOCRIT 47.5 % (42.0-52.0); HEMOGLOBIN 15.6 g/dl (13.5-17.5); MEAN CORPUSCULAR HEMOGLOBIN 29.4 pg (27.0-33.0); MEAN CORPUSCULAR HGB CONC 32.8 g/dl (32.0-36.5); MEAN CORPUSCULAR VOLUME 89.5 fl (80.0-96.0); PLATELET COUNT, AUTOMATED 318 10^3/uL (150-450); RED BLOOD COUNT 5.31 10^6/uL (4.30-6.10); WHITE BLOOD COUNT 11.1 10^3/uL (4.0-10.0)
[2021-12-25 10:30] LABS: HEMOGLOBIN A1c 6.2 %
[2021-12-25 10:49] LABS: ALBUMIN 4.2 GM/DL (3.2-5.2); ALT/SGPT 32 U/L (12-78); BILIRUBIN,TOTAL 0.7 MG/DL (0.2-1.0); BLOOD UREA NITROGEN 21 MG/DL (7-18); CALCIUM LEVEL 9.5 MG/DL (8.8-10.2); CARBON DIOXIDE LEVEL 28 MEQ/L (21-32); CHLORIDE LEVEL 105 MEQ/L (98-107); CHOLESTEROL LEVEL 146 MG/DL (<200); CHOLESTEROL RISK RATIO 3.173 (<5); CREATININE FOR GFR 1.12 MG/DL (0.70-1.30); GLOMERULAR FILTRATION RATE > 60.0 (>42); GLUCOSE, FASTING 91 MG/DL (70-100); HDL CHOLESTEROL 46 MG/DL (>40); LDL CHOLESTEROL 64 MG/DL (<100); NON-HDL-C 100 MG/DL; POTASSIUM SERUM 4.5 MEQ/L (3.5-5.1); PROSTATIC SPECIFIC AG MONITOR < 0.01 NG/ML (< 4.00); SODIUM LEVEL 139 MEQ/L (136-145); TESTOSTERONE 247 NG/DL (241-827); TOTAL PROTEIN 7.2 GM/DL (6.4-8.2); TRIGLYCERIDES LEVEL 178 MG/DL (<150)
== END ==
LOC: M RAD 09:00
PROVIDERS: ATTEND Family Medicine
DX: I10 Essential (primary) hypertension (principal); R53.83 Other fatigue; E03.9 Hypothyroidism, unspecified; Z79.899 Other long term (current) drug therapy

== ENCOUNTER → 2022-05-24 | Outpatient (CLI) | payer MEDICARE ==
[~2022-05-24] MED LIST changes: +ATEN50TA2 PO; +DIGO0.253 PO; +ELIQ5TAB PO; +LISI5TAB11 PO; +PRED5PAK2 PO
[2022-05-25 13:07] LABS: ANTINUCLEAR ANTIBODIES DIRECT Negative (Negative)
== END ==
LOC: M LAB 10:25
PROVIDERS: ATTEND Internal Medicine Cardiovascular Disease
DX: M13.0 Polyarthritis, unspecified (principal)

== ENCOUNTER → 2022-05-27 | Outpatient (CLI) | payer MEDICARE | LOC: M CARPUL 08:34 | PROVIDERS: ATTEND Internal Medicine Cardiovascular Disease | DX: I48.91 Unspecified atrial fibrillation (principal); I35.0 Nonrheumatic aortic (valve) stenosis ==

== ENCOUNTER → 2022-06-03 | Outpatient (CLI) | payer MEDICARE | LOC: M LAB 09:06 | PROVIDERS: ATTEND Urology | DX: C61 Malignant neoplasm of prostate (principal) ==

== ENCOUNTER → 2022-06-03 | Outpatient (CLI) | payer MEDICARE ==
[2022-06-03 10:24] LABS: THYROXINE (T4) 4.8 UG/DL (4.5-12.0)
[2022-06-03 10:44] LABS: TOTAL T3 94.5 NG/DL (60.0-181.0)
== END ==
LOC: M LAB 09:01
PROVIDERS: ATTEND Family Medicine
DX: E03.9 Hypothyroidism, unspecified (principal); R97.20 Elevated prostate specific antigen [PSA]

== ENCOUNTER → 2022-06-10 | Outpatient (REF) | payer MEDICARE, OTHER | LOC: M SMT 13:03 | PROVIDERS: ATTEND Urology | DX: C67.9 Malignant neoplasm of bladder, unspecified (principal) ==

== ENCOUNTER → 2022-10-01 | Outpatient (CLI) | payer MEDICARE ==
[2022-10-01 11:53] LABS: URIC ACID 6.6 MG/DL (3.7-9.2)
[2022-10-01 11:56] LABS: C REACTIVE PROTEIN QUANTITATIV < 0.40 MG/DL (<1.0)
[2022-10-01 11:57] LABS: ALBUMIN 3.8 G/DL (3.2-5.2); ALKALINE PHOSPHATASE 97 U/L (46-116); ALT/SGPT 27 U/L (7.0-40); AST/SGOT 32 U/L (<34); BILIRUBIN,TOTAL 0.8 MG/DL (0.3-1.2); BLOOD UREA NITROGEN 24 MG/DL (9-23); CALCIUM LEVEL 9.5 MG/DL (8.3-10.6); CARBON DIOXIDE LEVEL 27 MMOL/L (20-31); CHLORIDE LEVEL 103 MMOL/L (98-107); CREATININE FOR GFR 1.01 MG/DL (0.70-1.30); GLOMERULAR FILTRATION RATE > 60.0 (>42); GLUCOSE, FASTING 89 MG/DL (74-106); POTASSIUM SERUM 4.5 MMOL/L (3.5-5.1); SODIUM LEVEL 139 MMOL/L (136-145)
== END ==
LOC: M LAB 11:00
PROVIDERS: ATTEND Internal Medicine Cardiovascular Disease
DX: I11.9 Hypertensive heart disease without heart failure (principal); M13.0 Polyarthritis, unspecified; I48.0 Paroxysmal atrial fibrillation; M25.512 Pain in left shoulder; E03.9 Hypothyroidism, unspecified

== ENCOUNTER → 2022-11-07 | Outpatient (CLI) | payer MEDICARE ==
[2022-11-07 17:08] LABS: APPEARANCE, URINE MANUAL CLEAR (CLEAR); COLOR, URINE MANUAL YELLOW (YELLOW); SPECIFIC GRAVITY,URINE MANUAL 1.025 (1.002-1.035)
[2022-11-07 17:09] LABS: BILIRUBIN, URINE MANUAL NEGATIVE (NEGATIVE); BLOOD URINE MANUAL TRACE (NEGATIVE); GLUCOSE, URINE (UA) MANUAL NEGATIVE (NEGATIVE); KETONE, URINE MANUAL NEGATIVE (NEGATIVE); LEUKOCYTE ESTERASE, URINE MAN NEGATIVE (NEGATIVE); NITRITE, URINE MANUAL NEGATIVE (NEGATIVE); PROTEIN, URINE MANUAL NEGATIVE (NEGATIVE); UROBILINOGEN, URINE MANUAL NORMAL (NORMAL)
[2022-11-07 17:32] LABS: BASO # 0.1 10^3/uL (0.0-0.2); BASO % 0.8 % (0.0-1.0); EOS # 0.2 10^3/uL (0.0-0.5); EOS % 2.3 % (0.0-3.0); HEMATOCRIT 47.7 % (42.0-52.0); HEMOGLOBIN 15.8 g/dl (13.5-17.5); LYMPH # 1.1 10^3/uL (1.5-5.0); LYMPH % 16.4 % (24.0-44.0); MEAN CORPUSCULAR HEMOGLOBIN 29.7 pg (27.0-33.0); MEAN CORPUSCULAR HGB CONC 33.1 g/dl (32.0-36.5); MEAN CORPUSCULAR VOLUME 89.7 fl (80.0-96.0); MONO # 0.7 10^3/uL (0.0-0.8); MONO % 10.5 % (2.0-8.0); NEUTROPHILS # 4.5 10^3/uL (1.5-8.5); NEUTROPHILS % 69.5 % (36.0-66.0); PLATELET COUNT, AUTOMATED 293 10^3/uL (150-450); RED BLOOD COUNT 5.32 10^6/uL (4.30-6.10); WHITE BLOOD COUNT 6.5 10^3/uL (4.0-10.0)
[2022-11-07 17:43] LABS: INR 1.04; PROTHROMBIN TIME 13.8 SECONDS (12.5-14.5)
[2022-11-07 17:44] LABS: PARTIAL THROMBOPLASTIN TIME 39.4 SECONDS (24.8-34.2)
[2022-11-07 17:46] LABS: BACTERIA, URINE NONE SEEN; HYALINE CAST, URINE NONE SEEN /lpf (0-1); MUCUS, URINE SMALL AMOUNT (NEGATIVE); SQUAMOUS EPITHELIAL CELL URINE NONE SEEN /hpf (SMALL AMT); WBC, URINE 0-1 /hpf (0-3)
[2022-11-07 17:56] LABS: C REACTIVE PROTEIN QUANTITATIV < 0.40 MG/DL (<1.0)
[2022-11-07 17:57] LABS: ALBUMIN 4.3 G/DL (3.2-5.2); ALKALINE PHOSPHATASE 96 U/L (46-116); ALT/SGPT 46 U/L (7.0-40); AST/SGOT 39 U/L (<34); BILIRUBIN,TOTAL 0.7 MG/DL (0.3-1.2); BLOOD UREA NITROGEN 26 MG/DL (9-23); CALCIUM LEVEL 9.5 MG/DL (8.3-10.6); CARBON DIOXIDE LEVEL 30 MMOL/L (20-31); CHLORIDE LEVEL 101 MMOL/L (98-107); CREATININE FOR GFR 1.13 MG/DL (0.70-1.30); ERYTHROCYTE SEDIMENTATION RATE 17 mm/hr (0-20); GLOMERULAR FILTRATION RATE > 60.0 (>42); GLUCOSE, FASTING 117 MG/DL (74-106); POTASSIUM SERUM 4.3 MMOL/L (3.5-5.1); SODIUM LEVEL 140 MMOL/L (136-145); TOTAL PROTEIN 7.3 G/DL (5.7-8.2)
[2022-11-07 17:58] LABS: RHEUMATOID FACTOR QUANT < 3.5 IU/ML (<14)
[2022-11-11 12:08] LABS: ANTINUCLEAR ANTIBODIES DIRECT Negative (Negative); VITAMIN D 1,25 DIHYDROXY 37.5 pg/mL (24.8-81.5)
== END ==
LOC: M PLALAB 14:34
PROVIDERS: ATTEND Orthopaedic Surgery
DX: M19.012 Primary osteoarthritis, left shoulder (principal); Z79.01 Long term (current) use of anticoagulants

== ENCOUNTER → 2023-01-06 | Outpatient (CLI) | payer MEDICARE ==
[2023-01-06 09:52] LABS: HEMATOCRIT 46.1 % (42.0-52.0); HEMOGLOBIN 15.2 g/dl (13.5-17.5); MEAN CORPUSCULAR HEMOGLOBIN 29.9 pg (27.0-33.0); MEAN CORPUSCULAR VOLUME 90.7 fl (80.0-96.0); PLATELET COUNT, AUTOMATED 291 10^3/uL (150-450); RED BLOOD COUNT 5.08 10^6/uL (4.30-6.10); WHITE BLOOD COUNT 6.5 10^3/uL (4.0-10.0)
[2023-01-06 10:17] LABS: PROSTATIC SPECIFIC AG MONITOR 0.04 NG/ML (< 4.00)
[2023-01-06 10:21] LABS: THYROID STIMULATING HORMONE 3.071 uIU/ML (0.55-4.78)
[2023-01-06 10:22] LABS: TOTAL 25(OH) VITAMIN D 34.4 NG/ML (20.0-100.0)
[2023-01-06 10:23] LABS: TESTOSTERONE 273 NG/DL (241-827)
[2023-01-06 10:25] LABS: ALBUMIN 3.8 G/DL (3.2-5.2); ALKALINE PHOSPHATASE 80 U/L (46-116); ALT/SGPT 21 U/L (7.0-40); AST/SGOT 18 U/L (<34); BILIRUBIN,TOTAL 0.6 MG/DL (0.3-1.2); BLOOD UREA NITROGEN 24 MG/DL (9-23); CALCIUM LEVEL 9.2 MG/DL (8.3-10.6); CARBON DIOXIDE LEVEL 28 MMOL/L (20-31); CHLORIDE LEVEL 104 MMOL/L (98-107); CHOLESTEROL LEVEL 114 MG/DL (<200); CHOLESTEROL RISK RATIO 3.15 (<5); CREATININE FOR GFR 0.94 MG/DL (0.70-1.30); GLOMERULAR FILTRATION RATE > 60.0 (>42); GLUCOSE, FASTING 99 MG/DL (74-106); HDL CHOLESTEROL 36.1 MG/DL (>40); LDL CHOLESTEROL 35.9 MG/DL (<100); NON-HDL-C 77.9 MG/DL; POTASSIUM SERUM 4.3 MMOL/L (3.5-5.1); SODIUM LEVEL 139 MMOL/L (136-145); TOTAL PROTEIN 6.4 G/DL (5.7-8.2); TRIGLYCERIDES LEVEL 210 MG/DL (<150)
== END ==
LOC: M LAB 09:11
PROVIDERS: ATTEND Family Medicine
DX: D50.9 Iron deficiency anemia, unspecified (principal); R53.83 Other fatigue; E03.9 Hypothyroidism, unspecified

== ENCOUNTER → 2023-01-14 | Outpatient (REF) | payer MEDICARE ==
[2023-01-14 19:18] LABS: APPEARANCE, URINE MANUAL CLEAR (CLEAR); BILIRUBIN, URINE MANUAL NEGATIVE (NEGATIVE); BLOOD URINE MANUAL NEGATIVE (NEGATIVE); COLOR, URINE MANUAL YELLOW (YELLOW); GLUCOSE, URINE (UA) MANUAL NEGATIVE (NEGATIVE); KETONE, URINE MANUAL NEGATIVE (NEGATIVE); LEUKOCYTE ESTERASE, URINE MAN NEGATIVE (NEGATIVE); NITRITE, URINE MANUAL NEGATIVE (NEGATIVE); PROTEIN, URINE MANUAL NEGATIVE (NEGATIVE); UROBILINOGEN, URINE MANUAL NORMAL (NORMAL)
== END ==
LOC: M SMT 16:54
PROVIDERS: ATTEND Urology
DX: N39.0 Urinary tract infection, site not specified (principal)

== ENCOUNTER → 2023-02-21 | Outpatient (REF) | payer MEDICARE, OTHER ==
[2023-02-21 14:48] LABS: HEMATOCRIT 48.7 % (42.0-52.0); MEAN CORPUSCULAR HGB CONC 32.9 g/dl (32.0-36.5); MEAN CORPUSCULAR VOLUME 91.2 fl (80.0-96.0); PLATELET COUNT, AUTOMATED 296 10^3/uL (150-450); RED BLOOD COUNT 5.34 10^6/uL (4.30-6.10); WHITE BLOOD COUNT 6.9 10^3/uL (4.0-10.0)
[2023-02-21 14:49] LABS: ALKALINE PHOSPHATASE 88 U/L (46-116); ALT/SGPT 25 U/L (7.0-40); AST/SGOT 24 U/L (<34); BILIRUBIN,TOTAL 0.8 MG/DL (0.3-1.2); BLOOD UREA NITROGEN 18 MG/DL (9-23); CALCIUM LEVEL 9.4 MG/DL (8.3-10.6); CARBON DIOXIDE LEVEL 31 MMOL/L (20-31); CHLORIDE LEVEL 104 MMOL/L (98-107); CHOLESTEROL LEVEL 160 MG/DL (<200); CHOLESTEROL RISK RATIO 3.51 (<5); CREATININE FOR GFR 0.94 MG/DL (0.70-1.30); GLOMERULAR FILTRATION RATE > 60.0 (>42); GLUCOSE, FASTING 90 MG/DL (74-106); HDL CHOLESTEROL 45.5 MG/DL (>40); LDL CHOLESTEROL 85.9 MG/DL (<100); MAGNESIUM LEVEL 1.9 MG/DL (1.8-2.4); NON-HDL-C 114.5 MG/DL; POTASSIUM SERUM 4.6 MMOL/L (3.5-5.1); SODIUM LEVEL 137 MMOL/L (136-145); TOTAL PROTEIN 6.8 G/DL (5.7-8.2); TRIGLYCERIDES LEVEL 143 MG/DL (<150)
[2023-02-21 14:50] LABS: FREE T4 1.23 NG/DL (0.89-1.76); VITAMIN B12 LEVEL 322 PG/ML (211-911)
[2023-02-21 14:51] LABS: THYROID STIMULATING HORMONE 2.266 uIU/ML (0.55-4.78)
[2023-02-21 14:52] LABS: FOLATE 18.14 NG/ML (>5.4)
[2023-02-21 15:16] LABS: HEMOGLOBIN A1c 5.6 % (4.0-6.0)
[2023-02-21 15:17] LABS: CREATININE, URINE 141.2 MG/DL; MAU/CREAT RATIO 7.7 MCG/MG (0.0-30.0)
== END ==
LOC: M SFHCADAM 10:02
PROVIDERS: ATTEND Family Medicine
DX: I48.0 Paroxysmal atrial fibrillation (principal); E03.9 Hypothyroidism, unspecified; E78.2 Mixed hyperlipidemia; R53.83 Other fatigue; W57.XXXA Bitten or stung by nonvenomous insect and other nonvenomous arthropods, initial encounter; I11.9 Hypertensive heart disease without heart failure; Z79.899 Other long term (current) drug therapy

== ENCOUNTER → 2023-03-21 | Outpatient (CLI) | payer MEDICARE ==
[2023-03-21 14:28] LABS: BASO % 0.5 % (0.0-1.0); EOS # 0.2 10^3/uL (0.0-0.5); EOS % 2.9 % (0.0-3.0); HEMATOCRIT 44.8 % (42.0-52.0); HEMOGLOBIN 14.8 g/dl (13.5-17.5); LYMPH % 15.9 % (24.0-44.0); MEAN CORPUSCULAR HEMOGLOBIN 30.1 pg (27.0-33.0); MEAN CORPUSCULAR VOLUME 91.2 fl (80.0-96.0); MONO # 0.6 10^3/uL (0.0-0.8); MONO % 9.7 % (2.0-8.0); NEUTROPHILS # 4.4 10^3/uL (1.5-8.5); NEUTROPHILS % 70.7 % (36.0-66.0); PLATELET COUNT, AUTOMATED 252 10^3/uL (150-450); RED BLOOD COUNT 4.91 10^6/uL (4.30-6.10); WHITE BLOOD COUNT 6.2 10^3/uL (4.0-10.0)
[2023-03-21 14:56] LABS: BLOOD UREA NITROGEN 23 MG/DL (9-23); CALCIUM LEVEL 8.6 MG/DL (8.3-10.6); CARBON DIOXIDE LEVEL 32 MMOL/L (20-31); CHLORIDE LEVEL 102 MMOL/L (98-107); CREATININE FOR GFR 1.04 MG/DL (0.70-1.30); GLOMERULAR FILTRATION RATE > 60.0 (>42); GLUCOSE, FASTING 87 MG/DL (74-106); POTASSIUM SERUM 4.3 MMOL/L (3.5-5.1); SODIUM LEVEL 140 MMOL/L (136-145)
== END ==
LOC: M LAB 13:56
PROVIDERS: ATTEND Internal Medicine Cardiovascular Disease
DX: I48.0 Paroxysmal atrial fibrillation (principal)

== ENCOUNTER → 2023-05-31 | Outpatient (CLI) | payer MEDICARE | LOC: M LAB 08:19 | PROVIDERS: ATTEND Urology | DX: C61 Malignant neoplasm of prostate (principal) ==

== ENCOUNTER → 2023-06-09 | Outpatient (REF) | payer MEDICARE | LOC: M SMT 13:29 | PROVIDERS: ATTEND Urology | DX: C67.9 Malignant neoplasm of bladder, unspecified (principal) ==

== ENCOUNTER → 2023-09-17 | Outpatient (CLI) | payer MEDICARE | LOC: M RAD 10:16 | PROVIDERS: ATTEND Orthopaedic Surgery | DX: M19.012 Primary osteoarthritis, left shoulder (principal) ==

== ENCOUNTER → 2023-10-02 | Outpatient (CLI) | payer MEDICARE | LOC: M PLALAB 11:06 | PROVIDERS: ATTEND Physician Assistant | DX: M19.012 Primary osteoarthritis, left shoulder (principal); Z79.899 Other long term (current) drug therapy ==

== ENCOUNTER → 2024-02-27 | Outpatient (REF) | payer MEDICARE ==
[2024-02-27 13:45] LABS: HEMATOCRIT 43.9 % (42.0-52.0); MEAN CORPUSCULAR HEMOGLOBIN 28.6 pg (27.0-33.0); MEAN CORPUSCULAR HGB CONC 31.9 g/dl (32.0-36.5); MEAN CORPUSCULAR VOLUME 89.8 fl (80.0-96.0); PLATELET COUNT, AUTOMATED 387 10^3/uL (150-450); RED BLOOD COUNT 4.89 10^6/uL (4.30-6.10); WHITE BLOOD COUNT 8.7 10^3/uL (4.0-10.0)
[2024-02-27 14:16] LABS: PROSTATIC SPECIFIC AG MONITOR 0.04 NG/ML (< 4.00)
[2024-02-27 14:19] LABS: ALBUMIN 3.7 G/DL (3.2-5.2); ALKALINE PHOSPHATASE 139 U/L (46-116); ALT/SGPT 17 U/L (7.0-40); AST/SGOT 16 U/L (<34); BILIRUBIN,TOTAL 0.7 MG/DL (0.3-1.2); BLOOD UREA NITROGEN 21 MG/DL (9-23); CALCIUM LEVEL 9.2 MG/DL (8.3-10.6); CARBON DIOXIDE LEVEL 29 MMOL/L (20-31); CHLORIDE LEVEL 104 MMOL/L (98-107); CHOLESTEROL LEVEL 126 MG/DL (<200); CHOLESTEROL RISK RATIO 3.21 (<5); CREATININE FOR GFR 0.98 MG/DL (0.70-1.30); GLOMERULAR FILTRATION RATE > 60.0 (>42); GLUCOSE, FASTING 86 MG/DL (74-106); HDL CHOLESTEROL 39.2 MG/DL (>40); MAGNESIUM LEVEL 2.2 MG/DL (1.8-2.4); NON-HDL-C 86.8 MG/DL; POTASSIUM SERUM 4.9 MMOL/L (3.5-5.1); SODIUM LEVEL 139 MMOL/L (136-145); TOTAL PROTEIN 7.2 G/DL (5.7-8.2); TRIGLYCERIDES LEVEL 109 MG/DL (<150)
[2024-02-27 14:21] LABS: FREE T4 1.09 NG/DL (0.89-1.76); THYROID STIMULATING HORMONE 3.212 uIU/ML (0.55-4.78)
== END ==
LOC: M SFHCADAM 10:21
PROVIDERS: ATTEND Family Medicine
DX: I48.0 Paroxysmal atrial fibrillation (principal); C61 Malignant neoplasm of prostate; E03.9 Hypothyroidism, unspecified; I11.9 Hypertensive heart disease without heart failure; E78.2 Mixed hyperlipidemia; Z13.1 Encounter for screening for diabetes mellitus; W57.XXXA Bitten or stung by nonvenomous insect and other nonvenomous arthropods, initial encounter

== ENCOUNTER → 2024-05-17 | Outpatient (CLI) | payer MEDICARE ==
[2024-05-17 06:47] LABS: PLATELET COUNT, AUTOMATED 355 10^3/uL (150-450)
[2024-05-17 06:58] LABS: INR 1.07; PARTIAL THROMBOPLASTIN TIME 41.5 SECONDS (24.8-34.2); PROTHROMBIN TIME 13.6 SECONDS (12.5-14.5)
== END ==
LOC: M LAB 06:14
PROVIDERS: ATTEND Physical Medicine & Rehabilitation
DX: Z01.812 Encounter for preprocedural laboratory examination (principal); Z79.01 Long term (current) use of anticoagulants

== ENCOUNTER → 2024-05-18 | Outpatient (CLI) | payer MEDICARE | LOC: M LAB 06:17 | PROVIDERS: ATTEND Physical Medicine & Rehabilitation | DX: Z01.812 Encounter for preprocedural laboratory examination (principal); Z79.01 Long term (current) use of anticoagulants ==

== ENCOUNTER → 2024-05-31 | Outpatient (REF) | payer MEDICARE | LOC: M SFHCADAM 09:08 | PROVIDERS: ATTEND Urology | DX: C61 Malignant neoplasm of prostate (principal) ==

== ENCOUNTER → 2024-06-07 | Outpatient (REF) | payer MEDICARE | LOC: M SMT 09:46 | PROVIDERS: ATTEND Urology | DX: C67.9 Malignant neoplasm of bladder, unspecified (principal) ==

== ENCOUNTER → 2024-10-25 | Outpatient (CLI) | payer MEDICARE | LOC: M ADAMS 12:00 | PROVIDERS: ATTEND Family Medicine | DX: R05.2 Subacute cough (principal) ==

== ENCOUNTER → 2025-02-08 | Outpatient (REF) | payer MEDICARE ==
[~2025-02-08] MED LIST changes: -AMBI10TA PO; -FLOM0.4C39 PO; +TAMS-18 PO; +ZOLP-533 PO
[2025-02-08 14:04] LABS: HEMATOCRIT 46.4 % (42.0-52.0); HEMOGLOBIN 15.1 g/dl (13.5-17.5); MEAN CORPUSCULAR HEMOGLOBIN 29.4 pg (27.0-33.0); MEAN CORPUSCULAR HGB CONC 32.5 g/dl (32.0-36.5); MEAN CORPUSCULAR VOLUME 90.4 fl (80.0-96.0); PLATELET COUNT, AUTOMATED 306 10^3/uL (150-450); RED BLOOD COUNT 5.13 10^6/uL (4.30-6.10); WHITE BLOOD COUNT 6.2 10^3/uL (4.0-10.0)
[2025-02-08 14:10] LABS: ALBUMIN 3.8 G/DL (3.2-5.2); BILIRUBIN,TOTAL 0.4 MG/DL (0.3-1.2); CALCIUM LEVEL 9.6 MG/DL (8.3-10.6); CHOLESTEROL RISK RATIO 3.64 (<5); CREATININE FOR GFR 1.03 MG/DL (0.70-1.30); GLOMERULAR FILTRATION RATE 74.4 (>42); HDL CHOLESTEROL 35.9 MG/DL (>40); LDL CHOLESTEROL 71.5 MG/DL (<100); MAGNESIUM LEVEL 2.1 MG/DL (1.8-2.4); NON-HDL-C 95.1 MG/DL; POTASSIUM SERUM 4.9 MMOL/L (3.5-5.1); PROSTATIC SPECIFIC AG MONITOR 0.04 NG/ML (< 4.00); TOTAL PROTEIN 7.1 G/DL (5.7-8.2)
[2025-02-08 14:14] LABS: FREE T4 1.19 NG/DL (0.89-1.76); THYROID STIMULATING HORMONE 3.704 uIU/ML (0.55-4.78)
== END ==
LOC: M SFHCADAM 08:07
PROVIDERS: ATTEND Family Medicine
DX: H04.303 Unspecified dacryocystitis of bilateral lacrimal passages (principal); I11.9 Hypertensive heart disease without heart failure; E03.9 Hypothyroidism, unspecified; E78.2 Mixed hyperlipidemia; I48.0 Paroxysmal atrial fibrillation; C61 Malignant neoplasm of prostate

== ENCOUNTER → 2025-06-07 | Outpatient (REF) | payer MEDICARE | LOC: M SMT 12:59 | PROVIDERS: ATTEND Urology | DX: C67.9 Malignant neoplasm of bladder, unspecified (principal) ==